=== PATIENT | female | born 1960 | race African-American/Black ===

== ENCOUNTER → 2017-04-09 | Outpatient (CLI) | payer OTHER ==
--- NOTE | 2017-04-09 11:37 | RADIOLOGY REPORT (SQ) ---
EXAM DESCRIPTION: U/S RETROPERITON (RENAL/AORTA) COMPLETED DATE/TIME: 04/09/2017 11:10 am REASON FOR STUDY: NEUROGENIC BLADDER N31.9 NEUROMUSCULAR DYSFUNCTION OF BLADDER, UNSPECIFIED COMPARISON: None. TECHNIQUE: Dynamic and static grayscale images acquired of the kidneys and bladder and recorded on P ACS. Additional selected color Doppler and spectral images recorded. LIMITATIONS: None. FINDINGS: RIGHT KIDNEY: 9.8 cm in length. Normal echogenicity. No solid or suspicious masses. No hyd ronephrosis. No calcifications. LEFT KIDNEY: 9.3 cm in length. Normal echogenicity. No solid or suspicious masses. No hydronephrosis . No calcifications. BLADDER: Decompressed. Bilateral ureteral jets are identified. OTHER FINDINGS: No other significant finding. IMPRESSION: No hydronephrosis. Bladder nearly empty. However, bilateral ureteral jets are identified. TECHNICAL DOCUMENTATION: JOB ID: [id number] [employer]- All Rights Reserved
== END ==
LOC: RAD 10:20
PROVIDERS: ATTEND Urology
DX: N31.9 Neuromuscular dysfunction of bladder, unspecified (principal)
CPT/HCPCS: 76770